=== PATIENT | male | born 1970 | race Caucasian/White ===

== ENCOUNTER 2019-10-08 07:07 | Inpatient (IN) | payer MEDICAID, OTHER ==
[~2019-10-08] VITALS: Ht 170.2 cm; Wt 86.2 kg
[2019-10-08] VITALS (11 sets, daily range): BP systolic 105–134; BP diastolic 60–83
[~2019-10-08 07:07] MED LIST: ASPI-1169 PO; ATOR10TA PO; CARV25TA2 PO; OLME1TAB34 PO
[2019-10-08] MEDS ORDERED: ASPIRIN 325 MG TABLET ONE (07:18)
[2019-10-08] MEDS ORDERED: NITROGLYCERIN 0.4 MG/TAB BOTTLE ONE (07:20)
--- NOTE | 2019-10-08 07:23 | NUR ---
kathrin, from home, c/o chest pressure radiating to bilateral arm and back since yesterday 6pm and started again 3am today 10/10 ps. On room air, breathing evenly and unlabored. connected to the monitor and pulse ox. Kept comfortable, will continue to monitor accordingly.
[2019-10-08 07:26] LABS: BASOPHILS # (AUTO) 0.2 /CMM (0.0-0.2); BASOPHILS % (AUTO) 1.7 % (0.0-2.0); EOSINOPHILS % (AUTO) 2.4 % (0.0-6.0); HEMATOCRIT 50 % (39-51); HEMOGLOBIN 17.4 g/dL (13.5-17.5); LYMPHOCYTES # (AUTO) 3.1 /CMM (0.8-4.8); LYMPHOCYTES % (AUTO) 33.5 % (20.0-44.0); MEAN CORPUSCULAR HGB CONC 35 g/dl (31.0-36.0); MEAN CORPUSCULAR VOLUME 83 fL (80-96); MONOCYTES # (AUTO) 0.7 /CMM (0.1-1.30); MONOCYTES % (AUTO) 7.6 % (2.0-12.0); NEUTROPHILS # (AUTO) 5.1 /CMM (1.8-8.9); NEUTROPHILS % (AUTO) 54.8 % (43.0-81.0); PLATELET COUNT (AUTO) 373 /CMM (150-450); RED BLOOD CELL COUNT(AUTO) 6.01 MIL/uL (4.5-6.0); WHITE BLOOD COUNT (AUTO) 9.3 K/uL (4.3-11.0)
[2019-10-08] MEDS ORDERED: ASPIRIN 325 MG TABLET PO ONE (07:30)
[2019-10-08] MEDS ORDERED: NITROGLYCERIN 0.4 MG/TAB BOTTLE SL ONE (07:30)
[2019-10-08] MEDS ORDERED: NITROGLYCERIN PACKET 1 GM PACKET ONE (07:35)
--- NOTE | 2019-10-08 07:39 | NUR ---
DR HAZEL IS AT THE BEDSIDE SPEAKING TO THE PT.
--- NOTE | 2019-10-08 07:39 | NUR ---
NITROPASTE PUT ON PT'S CHEST.
--- NOTE | 2019-10-08 07:41 | NUR ---
CXR IN PROGRESS AT THE BEDSIDE.
[2019-10-08 07:43] LABS: CALCIUM, SERUM 9.6 mg/dL (8.5-10.1); CARBON DIOXIDE 23 mmol/L (21-32); CHLORIDE 103 mmol/L (98-107); CREATININE 0.9 mg/dL (0.6-1.3); GLUCOSE 125 mg/dL (74-106); POTASSIUM 3.7 mmol/L (3.5-5.1); SODIUM SERUM 139 mmol/L (136-145); UREA NITROGEN, BLOOD 14 mg/dL (7-18)
--- NOTE | 2019-10-08 07:53 | NUR ---
called for tele bed.
[2019-10-08] MEDS ORDERED: NITROGLYCERIN PACKET 1 GM PACKET TOP ONE (08:00)
--- NOTE | 2019-10-08 08:04 | NUR ---
vocational case manager will call admitting back.
--- NOTE | 2019-10-08 08:17 | NUR ---
got tele bed 109
--- NOTE | 2019-10-08 08:27 | NUR ---
dr sheth talking to dr webb.
[2019-10-08] MEDS ORDERED: IV NS 0.9% 1,000 ML IV ONE (08:30)
--- NOTE | 2019-10-08 08:30 | NUR ---
called dr. loza
[2019-10-08] MEDS ORDERED: IOHEXOL-350 100 ML VIAL IV ONE ×2 (09:00→12:24)
[2019-10-08] MEDS ORDERED: IV NS 0.9% 250 ML IV ONE ×2 (09:00→12:24)
--- NOTE | 2019-10-08 09:04 | NUR ---
wheeled patient via rney for ct scan
--- NOTE | 2019-10-08 09:10 | NUR ---
report given to Brian JOAQUIN for muna.
[2019-10-08] MEDS ORDERED: ACETAMINOPHEN 325 MG TABLET ONE (09:46)
--- NOTE | 2019-10-08 09:48 | NUR ---
pt c/o headache. dr webb aware. meidicated as ordered. see emar.
[2019-10-08] MEDS ORDERED: ACETAMINOPHEN 325 MG TABLET PO ONE (10:00)
--- NOTE | 2019-10-08 10:30 | NUR ---
CORPORATE SAFETY DIRECTOR NOTES PATIENT RECEIVED FROM ER. PATIENT IS A/O X4 PATIENT IS AWAKE. PATIENT STATE PAIN IN THE BACK. HEAD. ARMS . NO CHEST PAIN. PATIENT PAIN WORSEN WITH ADLS. PATIENT IS ON ROOM AIR AND TOLERATING WELL. PATIENT SHOWS NO SIGNS OF SOB. NO ACUTE RESPIRATORY DISTRESS. FAMILY AT BED SIDE. PATIENT IS ON TELE MONITOR SR IN THE 70'S PATIENTS SKIN IS INTACT PATIENT IS AMBULATORY. BED LOCKED AND LOWEST POSITION, CALL LIGHT WITH IN REACH. INFORMED FAMILY ABOUT TREATMENT PLAN
--- NOTE | 2019-10-08 10:55 | NUR ---
wheeled patient via gurney accompanied by RN and emt in no distress. Anny RN at bedside to assume care.
[2019-10-08] MEDS: CARVEDILOL 12.5 MG TABLET PO SCH ×2 (11:00→21:00)
[2019-10-08] MEDS ORDERED: ZOLPIDEM TARTRATE 5 MG TABLET PO PRN (11:00)
[2019-10-08] MEDS: LOSARTAN POTASSIUM 50 MG TABLET PO SCH (11:00)
[2019-10-08] MEDS: HYDROCHLOROTHIAZIDE 25 MG TABLET PO SCH (11:00)
[2019-10-08] MEDS: AMLODIPINE BESYLATE 10 MG TABLET PO SCH (11:00)
[2019-10-08] MEDS ORDERED: CT SWABBABLE VALVE TRANS SET 1 EA INFUS.SET MC ONE (12:24)
[2019-10-08] MEDS ORDERED: METOPROLOL TARTRATE INJ 5 MG/5 ML AMPUL IVP ONE (13:00)
[2019-10-08] MEDS ORDERED: IV NS 0.9% 500 ML IV PRN (13:00)
--- NOTE | 2019-10-08 14:46 | NUR ---
FOOD AND BEVERAGE SERVER NOTES HOLD BP MEDICATION PATIENT WENT TO CTA PATIENT WAS GIVEN BP MEDICATION
[2019-10-08] MEDS: PANTOPRAZOLE 40 MG TABLET.DR PO SCH (15:14)
--- NOTE | 2019-10-08 15:30 | NUR ---
BOX CAR LOADER NOTES [facility] REPORTING CTA IN SYSTEM
--- NOTE | 2019-10-08 16:00 | NUR ---
CERTIFIED INDUSTRIAL HYGIENIST NOTES DR SANTIZO REPORT TO START PATIENT ON HEPRIN DRIP - PATIENT WAS ASK IF HE HAD CHEST PAIN - PATIENT DENIES CHEST PAIN.
--- NOTE | 2019-10-08 16:05 | NUR ---
DIE TESTER NOTES TAMIKOAL ASKING OKAY TO PATIENT TRANSFER.
[2019-10-08] MEDS: ACETAMINOPHEN 325 MG TABLET PO PRN (16:25)
--- NOTE | 2019-10-08 16:46 | NUR ---
AMMUNITION ASSEMBLY II LABORER NOTES ORDER TO START LOVENOX .
[2019-10-08] MEDS: ENOXAPARIN SODIUM 80 MG/0.8 ML DISP.SYRIN SQ SCH (17:40)
--- NOTE | 2019-10-08 19:35 | NUR ---
ICU/RN notes Received patient from [facility] at this time, under the care of DR. Mcgarry, with DX chest pain, in no acute distress, breathing even and unlabored, denies SOB, Patient A/O x4, denies any pain, placed in bed, unit orientation provided, IV site with no S/S of infection infiltration, On tele monitoring with Sinus rhythm. Safety maintained, bed at the lowest locked position. Call light within reach. Will continue to monitor patient as per plan of care.
--- NOTE | 2019-10-08 19:40 | NUR ---
REGIONAL LOSS PREVENTION MANAGER NOTES PATIENT TRANSFER TO ICU REPORT TO [facility]
--- NOTE | 2019-10-08 20:28 | NUR ---
lab called for critical results, troponin 1.380, called Dr Mcgarry at this time, waiting for response
--- NOTE | 2019-10-08 20:36 | NUR ---
Dr Mcgarry called back, relayed patient current condition, vital signs and critical lab value with order to repeat troponin at 5AM. Noted and carried out. Patient in no acute distress, denies any pain at this time. Will continue to monitor closely
[2019-10-08] MEDS: HYDROCODONE/APAP 5/325MG 1 EACH TABLET PO PRN (21:28)
--- NOTE | 2019-10-08 23:57 | NUR ---
Notified Dr. Mcgarry that patient does not want to be transferred to [place] for higher level of care. Per Dr. Mcgarry patient needs to be transferred to a higher level of care due to NSTEMI. Dr. Mcgarry agreed to speak with patient and patient declined to speak with Dr. Mcgarry. Notified patient on why Dr. Mcgarry wanted patient to be transferred to a higher level of care and patent stated "there are 2 choices either I stay here and wait to talk to Dr. Maddox or I go home." Dr. Mcgarry spoke with Dr. Maddox and per Dr. Mcgarry, Dr. Maddox agrees that patient should go to a higher level of care. Patient continues to state that he does not want to go and wants to stay here till the morning and talk to Dr. Maddox face to face. Educated patient on the need to send patient to a higher level of care due to NSTEMI up to and leading to . patient continue to refuse to transfer and wants to stay here at [facility] ICU. will continue to talk to patient and try to educate patient on transferring to higher level of care.
[2019-10-09] VITALS (22 sets, daily range): BP systolic 116–146; BP diastolic 68–94
[2019-10-09 04:40] LABS: CALCIUM, SERUM 8.8 mg/dL (8.5-10.1); POTASSIUM 3.6 mmol/L (3.5-5.1)
[2019-10-09] MEDS: ENOXAPARIN SODIUM 80 MG/0.8 ML DISP.SYRIN SQ SCH (06:31)
[2019-10-09] MEDS: HYDROCODONE/APAP 5/325MG 1 EACH TABLET PO PRN (06:41)
--- NOTE | 2019-10-09 06:56 | NUR ---
ICU/RN exit notes Patient remained in bed, awake, A/O to his base line, family at bed side, in no acute distress, breathing even and unlabored, denies SOB, C/O Head pain 05/04, PRN pain medication given, due meds given as ordered, tolerated well, IV site with no S/S of infection infiltration, On tele monitoring with Sinus rhythm. troponin trending down, Safety maintained, bed at the lowest locked position. Call light within reach. Will endorse to AM shift nurse for SJ.
--- NOTE | 2019-10-09 07:15 | NUR ---
ICU NOTES RECEIVED BED SIDE REPORT. PT A/O X4 NO SIGNS OR SYMPTOMS OF RESPIRATORY DISTRESS ON 2 LTRS NC SATURATING 98%.C/O SLIGHT HEADACHE NORCO GIVEN BY NOC. PT FAMILY AT BEDSIDE WAITING FOR STERILE PROC TECH TO SPEAK TO THEM IN REGARDS TO LABS/TEST AND TRANSFER PER DR SANTIZO TO [facility] HIGHER LEVEL OF CARE. AMBULATORY IN ROOM USING URINAL WITHOUT DIFFICULTY NO N/V PRESENT. SAFETY PRECAUTIONS IN PLACE ORIENTED TO ROOM AND CALL SYSTEMWILL CONT TO MONITOR ACCORDINGLY
--- NOTE | 2019-10-09 08:00 | NUR ---
DR ROLAND MISSILE TECHNICIAN AT BEDSIDE FOR CONSULTATION
[2019-10-09] MEDS ORDERED: ASPIRIN 81 MG TAB.CHEW PO SCH (09:00)
[2019-10-09] MEDS: PANTOPRAZOLE 40 MG TABLET.DR PO SCH (09:17)
[2019-10-09] MEDS: CARVEDILOL 12.5 MG TABLET PO SCH (09:18)
[2019-10-09] MEDS: LOSARTAN POTASSIUM 50 MG TABLET PO SCH (09:18)
[2019-10-09] MEDS: AMLODIPINE BESYLATE 10 MG TABLET PO SCH (09:18)
[2019-10-09] MEDS: HYDROCHLOROTHIAZIDE 25 MG TABLET PO SCH (09:18)
--- NOTE | 2019-10-09 09:20 | NUR ---
DR SANTIZO AT BEDSIDE TO SEE PT. PT AND FAMILY CONFIRMING THEY WANT TO GO TO [facility]
[2019-10-09] MEDS ORDERED: ATORVASTATIN 40 MG TABLET PO SCH (10:00)
--- NOTE | 2019-10-09 10:52 | NUR ---
DR HALEY ON PHONE TO SPEAK WITH FAMILY FROM [facility] Addendum: 10/09/19 at 1158 by MONICO OG RN CORRECTION [facility] ON PHONE TO INFORM AND GET CONSENT TO TRANSFER PT TO [facility] AND HAVE PROCEDURE DONE BY DR MARRUFO. FAMILY AGREED AWING FOR ETA OF AMBULANCE AND DISCHARGE
--- NOTE | 2019-10-09 12:24 | NUR ---
SPOKE WITH LIZA FROM [facility] [phone] PT WILL BE TRANSFERRED TO [facility]IA [facility] TO [facility] ROOM 519 REPORT TO BE GIVEN TO FLOOR [phone] INFORMED WALLY OF PT OF TRANSFER TIME AND ROOM NUMBER
[2019-10-09] MEDS: ACETAMINOPHEN 325 MG TABLET PO PRN (12:35)
--- NOTE | 2019-10-09 12:37 | NUR ---
PT C/O HEADACHE WITH SOME NAUSEA TYLENOL 650 MG GIVEN ORALLY.
--- NOTE | 2019-10-09 12:44 | NUR ---
ATTEMPTED TO GIVE REPORT TO INSURANCE RISK MANAGER @ [facility] UNABLE TO AT THIS TIME D/T "PHONE SYSTEM DOWN TO TRANSFER CALL" GAVE CALL BACK NUMBER INFORMED THEM THAT PT WILL BE PICKED UP @ [phone]
--- NOTE | 2019-10-09 12:55 | NUR ---
REPORT GIVEN TO DESTIN JOAQUIN @ [facility]
--- NOTE | 2019-10-09 14:55 | NUR ---
PT TRANSFER TO [facility] VIA AMBULANCE. ALL EXIT CARE AND REPORTS GIVEN PT FAMILY ACCOMPANIED EMS. VITALS STABLE 120/77 89 94% ON ROOM AIR AFEBRILE
== END 2019-10-09 15:00 | disposition short-term general hospital (02) | DRG 282 ==
LOC: ER 07:09 → TELE1 10:30 → ICU 19:08
PROVIDERS: ADMIT Internal Medicine; ATTEND Internal Medicine
DX: I21.4 Non-ST elevation (NSTEMI) myocardial infarction (principal); F17.210 Nicotine dependence, cigarettes, uncomplicated; E78.5 Hyperlipidemia, unspecified; I10 Essential (primary) hypertension; K21.9 Gastro-esophageal reflux disease without esophagitis; I25.10 Atherosclerotic heart disease of native coronary artery without angina pectoris; Z82.49 Family history of ischemic heart disease and other diseases of the circulatory system; E78.00 Pure hypercholesterolemia, unspecified
CPT/HCPCS: 36415; 71045-TC; 75574; 80048-TC; 80061-TC; 84484-TC; 85025-TC; 87081-TC; 93307-TC; 94799-TC; G0378; J1650; J3490; J7030; J7050; Q9967

== ENCOUNTER 2023-03-28 21:00 | Emergency (ER) | payer OTHER ==
[~2023-03-28] VITALS: Ht 167.6 cm; Wt 90.7 kg
[~2023-03-28 21:00] MED LIST changes: -ATOR10TA PO
--- NOTE | 2023-03-28 22:05 | NUR ---
BIBFAM FOR SOB AND CHEST PRESSURE X 3 WEEKS "I CANT TAKE A DEEP BREATH"
[2023-03-28 23:03] LABS: BASOPHILS # (AUTO) 0.1 K/uL (0.0-0.2); EOSINOPHILS % (AUTO) 1.9 % (0.0-6.0); HEMATOCRIT 45 % (39-51); HEMOGLOBIN 15.2 g/dL (13.5-17.5); LYMPHOCYTES # (AUTO) 2.4 K/uL (0.8-4.8); MEAN CORPUSCULAR HGB CONC 34 g/dl (31.0-36.0); MEAN CORPUSCULAR VOLUME 85 fL (80-96); MONOCYTES # (AUTO) 0.5 K/uL (0.1-1.30); MONOCYTES % (AUTO) 7.1 % (2.0-12.0); NEUTROPHILS # (AUTO) 4.5 K/uL (1.8-8.9); PLATELET COUNT (AUTO) 219 K/uL (150-450); RED BLOOD CELL COUNT(AUTO) 5.29 MIL/uL (4.5-6.0); WHITE BLOOD COUNT (AUTO) 7.7 K/uL (4.3-11.0)
[2023-03-28 23:11] LABS: CALCIUM, SERUM 8.8 mg/dL (8.5-10.1); CARBON DIOXIDE 25 mmol/L (21-32); CHLORIDE 108 mmol/L (98-107); CREATININE 1.3 mg/dL (0.6-1.3); GLUCOSE 109 mg/dL (74-106); POTASSIUM 3.9 mmol/L (3.5-5.1); SODIUM SERUM 140 mmol/L (136-145); UREA NITROGEN, BLOOD 18 mg/dL (7-18)
[2023-03-28 23:15] LABS: D-DIMER 0.43 mg/L(FEU (0.17-0.50)
--- NOTE | 2023-03-28 23:41 | NUR ---
COVID SWAB COLLECTED AND SENT TO LAB
[2023-03-28] MEDS ORDERED: FUROSEMIDE 40 MG/4 ML VIAL ONE (23:49)
[2023-03-29] MEDS ORDERED: FUROSEMIDE 40 MG/4 ML VIAL IV ONE
--- NOTE | 2023-03-29 00:23 | NUR ---
RECEIVED A CALL FROM GABRIELLE (ELIDA) REQUESTING FOR PT CLINICALS. CHECKED IN WITH ADMITTING AND WAS INFORMED THAT THEY ALREADY SENT IT OVER. AWAITING FOR CALL BACK AT THIS TIME.
--- NOTE | 2023-03-29 01:27 | NUR ---
Patient does not wish to proceed with medical care recommended by ( Ishmael). Patient given information related to possible complications, up to and including , which could occur as a result of leaving the hospital at this time. Patient verbalizes understanding of risks involved due to leaving against medical advice. Patient has signed AMA form.
[2023-03-29 01:29] VITALS: BP 184/84
== END 2023-03-29 01:30 | disposition left against medical advice (07) ==
LOC: ER 22:00
DX: I11.0 Hypertensive heart disease with heart failure (principal); I50.9 Heart failure, unspecified; I25.2 Old myocardial infarction; E78.00 Pure hypercholesterolemia, unspecified; R07.89 Other chest pain; F17.210 Nicotine dependence, cigarettes, uncomplicated; Z90.49 Acquired absence of other specified parts of digestive tract; Z79.82 Long term (current) use of aspirin; Z79.899 Other long term (current) drug therapy; Z20.822 Contact with and (suspected) exposure to COVID-19
CPT/HCPCS: 99285; 96374; 71045; 87426; 93005 ×2; 85025; 80048; 85378; 36415; 84484; 85730; 83880; J1940; C9803

== ENCOUNTER 2025-10-15 08:10 | Emergency (ER) | payer BC, OTHER ==
[~2025-10-15] VITALS: Ht 170.2 cm; Wt 90.7 kg
[2025-10-15 08:27] VITALS: TEMP 98.1
[2025-10-15] MEDS ORDERED: ACET-73 PO (10:05)
[2025-10-15 10:07] VITALS: BP 150/90; O2SAT 97
== END 2025-10-15 10:09 | disposition home or self-care (01) ==
LOC: ER 08:17
DX: S40.021A Contusion of right upper arm, initial encounter (principal); S50.11XA Contusion of right forearm, initial encounter; I11.0 Hypertensive heart disease with heart failure; I25.10 Atherosclerotic heart disease of native coronary artery without angina pectoris; F17.200 Nicotine dependence, unspecified, uncomplicated; E78.00 Pure hypercholesterolemia, unspecified; Z79.899 Other long term (current) drug therapy; Z90.49 Acquired absence of other specified parts of digestive tract; Z95.5 Presence of coronary angioplasty implant and graft
CPT/HCPCS: 73110; 73130-TC; 93971-TC